=== PATIENT | female | born 1955 | race Caucasian/White ===

== ENCOUNTER 2017-05-31 06:01 | Day surgery (SDC) | payer OTHER ==
[2017-05-31] MEDS ORDERED: CEFAZOLIN 2 GM/50 ML (PMX) 50 ML IVPB (07:00)
[2017-05-31] MEDS ORDERED: ROCURONIUM 50 MG INJ (07:47)
[2017-05-31] MEDS ORDERED: CEFAZOLIN 1 GM INJ (07:47)
[2017-05-31] MEDS ORDERED: MIDAZOLAM 1 MG/ML 2 ML INJ (07:47)
[2017-05-31] MEDS ORDERED: PROPOFOL 20 ML (07:47)
[2017-05-31] MEDS ORDERED: NEOSTIGMINE 3 MG/3 ML SYRINGE (07:47)
[2017-05-31] MEDS ORDERED: GLYCOPYRROLATE 0.4 MG INJ (07:47)
[2017-05-31] MEDS ORDERED: DEXAMETHASONE 4 MG/ML 1 ML INJ (07:48)
[2017-05-31] MEDS ORDERED: FENTAnyl 50 MCG/ML VIAL (07:48)
[2017-05-31] MEDS ORDERED: ONDANSETRON 4 MG INJ (07:48)
[2017-05-31] MEDS: BUPIVACAINE 0.5% (SDV) 30 ML INJ (08:17)
[2017-05-31] MEDS: POLYMYXIN/BACITRACIN 1L IRRIG (08:18)
[2017-05-31] MEDS ORDERED: EPHEDrine SULFATE 50 MG/5 ML SYG IV (08:30)
[2017-05-31] MEDS ORDERED: ALBUTEROL 0.083% (NEB) 2.5 MG/3 ML AMP HHN (08:30)
[2017-05-31] MEDS ORDERED: ONDANSETRON 4 MG INJ IV (08:30)
[2017-05-31] MEDS ORDERED: OXYCODONE/ACETAMINOPHEN (5/325) TAB PO ×2 (08:30)
[2017-05-31] MEDS ORDERED: TRIMETHOBENZAMIDE 100 MG/ML VIAL IM (08:30)
[2017-05-31] MEDS ORDERED: DIPHENHYDRAMINE 50 MG INJ IV (08:30)
[2017-05-31] MEDS ORDERED: IPRATROPIUM (NEB) 0.5 MG/2.5 ML AMP HHN (08:30)
[2017-05-31] MEDS ORDERED: hydrALAzine 20 MG INJ IV (08:30)
[2017-05-31] MEDS ORDERED: LABETALOL HCL 20MG INJ IV (08:30)
[2017-05-31] MEDS ORDERED: HYDROmorphONE (0.2 MG/ML) 10ML SYG IV ×3 (08:30)
[2017-05-31] MEDS ORDERED: FENTAnyl 50 MCG/ML VIAL IV ×3 (08:30)
[2017-05-31] MEDS ORDERED: MEPERIDINE 25 MG INJ IV (08:30)
[2017-05-31] MEDS ORDERED: MIDAZOLAM 1 MG/ML 2 ML INJ IV (08:30)
[2017-05-31] MEDS ORDERED: SUGAMMADEX SODIUM 200 MG/2 ML VIAL IV (08:49)
== END 2017-05-31 11:33 | disposition home or self-care (01) ==
LOC: SDS 06:01
DX: M20.11 Hallux valgus (acquired), right foot (principal); M20.41 Other hammer toe(s) (acquired), right foot; E11.9 Type 2 diabetes mellitus without complications
CPT/HCPCS: 28285; 73630; 82962; 88304; 88311